=== PATIENT | male | born 1950 | race Caucasian/White ===

== ENCOUNTER 2016-12-29 14:30 | Emergency (ER) | payer MEDICARE, OTHER ==
[2016-12-29 14:42] VITALS: BP 165/81
[2016-12-29] MEDS ORDERED: Bupivacaine 0.5% 10 ML SDV INJECT ONE (15:11)
--- NOTE | 2016-12-29 15:12 | EDM.PDOC ---
ED HPI GENERAL MEDICAL PROBLEM - General Chief Complaint: Laceration Stated Complaint: Left finger injury Time Seen by Provider: 12/29/16 15:05 Source of Information: Reports: Patient, RN Notes Reviewed History Limitations: Reports: No Limitations - History of Present Illness INITIAL COMMENTS - FREE TEXT/NARRATIVE: 66 year old male presents to the ED with laceration and crush type injury to his left ring finger. He was moving a large rock and caught his finger between concrete and the large rock. He has pain to the tip of his finger. His finger nail is intact. Last tetanus was in 2016. Left 4-Ring finger Pain Score (Numeric/FACES): 7 - Related Data Allergies Allergy/AdvReac Type Severity Reaction Status Date / Time No Known Allergies Allergy Verified 12/29/16 14:42 Home Meds: Home Meds Aspirin [Halfprin] 81 mg PO DAILY 09/30/15 [History] Gemfibrozil [Gemfibrozil] 600 mg PO BID 09/30/15 [History] amLODIPine Besylate [Amlodipine Besylate] 10 mg PO DAILY 09/30/15 [History] metFORMIN [Glucophage XR] 500 mg PO DAILY 09/30/15 [History] Cephalexin [Keflex] 500 mg PO Q6HR #28 cap 12/29/16 [Rx] Gabapentin [Neurontin] 200 mg PO BEDTIME 12/29/16 [History] Ibuprofen 800 mg PO TID PRN #30 tablet 12/29/16 [Rx] Lutein/Minerals/Vit A,C & E [Ocuvite] 1 tab PO DAILY 12/29/16 [History] Multivitamin [Multivitamins] 1 each PO DAILY 12/29/16 [History] Ranitidine [Zantac] 150 mg PO BID 12/29/16 [History] Past Medical History Cardiovascular History: Reports: High Cholesterol, Hypertension Neurological History: Reports: Neuropathy, Diabetic Endocrine/Metabolic History: Reports: Diabetes, Type II Social & Family History - Tobacco Use Smoking Status *Q: Former Smoker Used Tobacco, but Quit: Yes Month Tobacco Last Used: 1984 - Caffeine Use Caffeine Use: Reports: None - Recreational Drug Use Recreational Drug Use: No ED ROS GENERAL - Review of Systems Review Of Systems: See Below Musculoskeletal: Reports: Other (finger pain) Skin: Reports: Wound Neurological: Denies: Numbness, Tingling ED EXAM, SKIN/RASH Exam: See Below Exam Limited By: No Limitations General Appearance: Alert, WD/WN, No Apparent Distress Respiratory/Chest: No Respiratory Distress Cardiovascular: Regular Rate, Rhythm Extremities: Other (wound to tip of left ring finger. He has full ROM of the DIP joint. ) Neurological: Alert, Oriented, No Motor/Sensory Deficits Skin: Warm, Dry, Normal Color, Other (deep, gaping, laceration to tip of left ring finger. There is a small 0.5cm laceration as well to the tip of the finger. ) ED SKIN PROCEDURES - Laceration/Wound Repair Left Finger Lac/Wound length In cm: 3 Appearance: Subcutaneous, Irregular, Mildly Contaminated Distal NVT: Neuro & Vascular Intact, No Tendon Injury Anesthetic Type: Digital Local Anesthesia - Bupivicaine (Marcaine): 0.5% Plain Local Anesthetic Volume: Other (8) Exploration/Debridement/Repair: Wound Explored, in a Bloodless Field, Explored to Base, Minimal Debridement, No Foreign Material Found, Wound Margins Revised Closed with: Sutures Suture Size: 4-0 # of Sutures: 6 Suture Type: Nylon, Interrupted, Simple Sterile Dressing Applied: Nurse Tetanus Status Addressed: Yes Complications: No Complication Description: Small 0.5cm laceration was also repaired with 1 4-0 suture. Course - Vital Signs Last Recorded V/S: Last Vital Signs Temp 97.6 F 12/29/16 14:37 Pulse 70 12/29/16 14:37 Resp 16 12/29/16 14:37 BP 165/81 H 12/29/16 14:37 Pulse Ox 97 12/29/16 14:37 - Orders/Labs/Meds Orders: Active Orders 24 hr Category Date Time Status Fingers Fourth Digit Lt F3 [CR] Stat Exams 12/29/16 15:11 Taken Meds: Medications Discontinued Medications Generic Name Dose Route Start Last Admin Trade Name Freq PRN Reason Stop Dose Admin Bupivacaine HCl 10 ml 12/29/16 15:11 12/29/16 15:31 Sensorcaine-Mpf 0.5% INJECT 12/29/16 15:12 10 ml ONETIME ONE Administration - Re-Assessments/Exams Free Text/Narrative Re-Assessment/Exam: X-rays of the left ring finger reveal a tuft fracture. Wound was thoroughly cleansed. Patient will be placed on Keflex with instructions to f/u with ortho in 7-10 days. Educated on wound care. Placed in aluminum splint. Departure - Departure Time of Disposition: 15:59 Disposition: Home, Self-Care 01 Condition: Good Clinical Impression: Finger laceration Qualifiers: Encounter type: initial encounter Finger: ring finger Damage to nail status: without damage Foreign body presence: without foreign body Laterality: left Qualified Code(s): S61.215A - Laceration without foreign body of left ring finger without damage to nail, initial encounter Open fracture of tuft of distal phalanx of finger Qualifiers: Encounter type: initial encounter Qualified Code(s): S62.639B - Displaced fracture of distal phalanx of unspecified finger, initial encounter for open fracture - Discharge Information Prescriptions: Cephalexin [Keflex] 500 mg PO Q6HR #28 cap Ibuprofen 800 mg PO TID PRN #30 tablet PRN Reason: Pain Instructions: Laceration Care, Adult Referrals: Derrick Upton MD [Primary Care Provider] - Forms: ED Department Discharge Additional Instructions: Rest, ice and elevate Wear finger splint until evaluated by Dr. Coley See Dr. Coley in 7-10 days for recheck. Call [phone] to schedule Ibuprofen 800mg every 8 hours as needed for pain Tylenol 1000mg every 8 hours as needed for pain Keflex 500mg every 6 hours for a total of 7 days Laceration with suture repair Try to keep initial dressing in place for 24 hours After 24 hours, you can gently wash the wound with gentle soap and water Do not submerge the area in water until the sutures are out Apply antibiotic ointment and keep the wound covered for first 2-3 days then leave open to air Keep wound covered if there is a chance it can get dirty Sutures need to be removed in 7-10 days [facility] removes sutures for free. Their hours are 8am-6pm Monday through Monday. Return to clinic if signs or symptoms of infection arise, including increased redness, swelling, drainage, or fever Tylenol or Ibuprofen as needed for pain - My Orders Last 24 Hours: My Active Orders 12/29/16 15:11 Fingers Fourth Digit Lt F3 [CR] Stat - Assessment/Plan Last 24 Hours: My Active Orders 12/29/16 15:11 Fingers Fourth Digit Lt F3 [CR] Stat
--- NOTE | 2016-12-30 07:02 | CR ---
Left fourth finger: Four views centered to the left fourth finger were obtained. Distal soft tissue injury is identified. No fracture, dislocation or other bony abnormality is seen. Impression: 1. Distal soft tissue injury. 2. No bony abnormality is identified on left fourth finger study. Diagnostic code #3
== END 2016-12-29 16:20 | disposition home or self-care (01) ==
LOC: JD.ED 14:30
DX: S62.639B Displaced fracture of distal phalanx of unspecified finger, initial encounter for open fracture (principal); I10 Essential (primary) hypertension; E11.40 Type 2 diabetes mellitus with diabetic neuropathy, unspecified; Z79.84 Long term (current) use of oral hypoglycemic drugs; E78.00 Pure hypercholesterolemia, unspecified; Z87.891 Personal history of nicotine dependence; Z79.82 Long term (current) use of aspirin; Z79.899 Other long term (current) drug therapy
CPT/HCPCS: 12002; 64450; 73140-26-F3; 73140-F3; 99283-25

== ENCOUNTER 2018-02-26 03:16 | Emergency (ER) | payer MEDICARE, OTHER ==
[2018-02-26 03:25] VITALS: BP 146/66
--- NOTE | 2018-02-26 03:39 | EDM.PDOC ---
ED HPI GENERAL MEDICAL PROBLEM - General Chief Complaint: Lower Extremity Injury/Pain Stated Complaint: LEG PAIN Time Seen by Provider: 02/26/18 03:28 Source of Information: Reports: Patient, Family, Old Records History Limitations: Reports: No Limitations - History of Present Illness INITIAL COMMENTS - FREE TEXT/NARRATIVE: Patient is with right groin pain rating down to the right inner thigh. He had heart catheter/angiogram performed on February 15, 2018. He had developed some chest pain and went to the [facility] where he had workup and evaluation that showed a positive calcium score for his heart screening chest pain and this was followed by the angiogram. His angiogram acted came back showing fairly good results. He did not require any stents. He's only been on aspirin 81 mg daily. He has described having a history of a blood clot many years ago but otherwise has not noted any chest pain shortness of breath or breathing problems. No fevers chills or sweats. He's noted the development of bruising discoloration and some mild swelling to the right thigh that started 4 days ago does not have any increasing pain with walking no claudication E Marie feels better when he walks and feels worse at rest. Note some back discomfort but no history of any back pain or sciatica. Right Groin Pain Score (Numeric/FACES): 8 - Related Data Allergies Allergy/AdvReac Type Severity Reaction Status Date / Time No Known Allergies Allergy Verified 02/26/18 03:42 MDT Home Meds: Home Meds Aspirin [Halfprin] 81 mg PO DAILY 09/30/15 [History] Gemfibrozil 600 mg PO BID 09/30/15 [History] amLODIPine Besylate [Amlodipine Besylate] 10 mg PO DAILY 09/30/15 [History] metFORMIN [Glucophage XR] 500 mg PO DAILY 09/30/15 [History] Gabapentin [Neurontin] 200 mg PO BID 12/29/16 [History] Ibuprofen 800 mg PO TID PRN #30 tablet 12/29/16 [Rx] Lutein/Minerals/Vit A,C & E [Ocuvite] 1 tab PO DAILY 12/29/16 [History] Multivitamin [Multivitamins] 1 each PO DAILY 12/29/16 [History] Ranitidine [Zantac] 150 mg PO BID 12/29/16 [History] Rosuvastatin [Crestor] 10 mg PO DAILY 02/26/18 [History] traMADol [Ultram] 50 mg PO Q4H PRN #12 tab 02/26/18 [Rx] Past Medical History Cardiovascular History: Reports: High Cholesterol, Hypertension Neurological History: Reports: Neuropathy, Diabetic Endocrine/Metabolic History: Reports: Diabetes, Type II Social & Family History - Caffeine Use Caffeine Use: Reports: None Review of Systems - Review of Systems Review Of Systems: See Below Constitutional: Denies: Chills, Fever, Weakness Respiratory: Denies: Shortness of Breath, Cough Cardiovascular: Denies: Chest Pain, Irregular Heart Rate, Lightheadedness, Syncope GI/Abdominal: Denies: Abdominal Pain, Diarrhea, Nausea, Vomiting Genitourinary: Denies: Dysuria Musculoskeletal: Reports: Leg Pain. Denies: Foot Pain Skin: Reports: Bruising. Denies: Rash Neurological: Denies: Confusion, Dizziness, Headache Psychiatric: Reports: No Symptoms ED EXAM, GENERAL - Physical Exam Exam: See Below Exam Limited By: No Limitations General Appearance: Alert, WD/WN, No Apparent Distress Head: Atraumatic Respiratory/Chest: No Respiratory Distress, Lungs Clear, Normal Breath Sounds, No Accessory Muscle Use Cardiovascular: Normal Peripheral Pulses, Regular Rate, Rhythm, No Edema, No Gallop, No Murmur Peripheral Pulses: 2+: Femoral (L), Femoral (R), Posterior Tibial (R), Dorsalis Pedis (R) GI/Abdominal: Normal Bowel Sounds, Soft, Non-Tender, No Organomegaly, No Distention (Male) Exam: No Hernia, Other (No groin adenopathy, no bruit noted to the right femoral artery. No pulsatile mass noted.) Back Exam: Normal Inspection. No: CVA Tenderness (R) Extremities: Leg Pain, Other (Bruising discoloration noted from the area of the femoral artery more distally down to the medial knee with bruising discoloration and mild swelling. No obvious induration or warmth or redness however. Pain distal dorsalis pedis and posterior tibial pulses are normal). No : Pedal Edema, Clau's Sign, Limited Range of Motion, Increased Warmth Psychiatric: Normal Affect, Normal Mood Skin Exam: Warm, Dry. No: Erythema, Lymphangitis Course - Vital Signs Text/Narrative:: Reviewed patient's records from his visit to [facility] his workup and evaluation was reviewed. It does not appear that was any complications regarding his catheter/angiogram performed by Dr. Alva. Rule out for pseudoaneurysm, DVT, only bruising, circulation deficit. His pulses otherwise or good sensations normal. We'll screen general chemistry and clotting factor, CBC to look for infection or abnormality. We'll also perform an ultrasound to rule out pseudoaneurysm and clot. Patient was given tramadol for pain at present. Last Recorded V/S: Last Vital Signs Temp 97.1 F 02/26/18 03:21 MDT Pulse 65 02/26/18 03:21 MDT Resp 12 02/26/18 03:21 MDT BP 146/66 H 02/26/18 03:21 MDT Pulse Ox 98 02/26/18 03:21 MDT - Orders/Labs/Meds Orders: Active Orders 24 hr Category Date Time Status Cardiac Monitoring [RC] . DIRECTED Care 02/26/18 03:49 Active VL Duplex Lwr Ext Veins Ltd Rt [US] Stat Exams 02/26/18 03:50 Taken Labs: Laboratory Tests 02/26/18 02/26/18 02/26/18 Range/Units 03:55 MDT 03:55 MDT 03:55 MDT WBC 6.36 (4.23-9.07) K/mm3 RBC 4.15 L (4.63-6.08) M/mm3 Hgb 13.1 L (13.7-17.5) gm/L Hct 37.5 L (40.1-51.0) % MCV 90.4 (79.0-92.2) fl MCH 31.6 (25.7-32.2) pg MCHC 34.9 (32.2-35.5) g/dl RDW Std Deviation 42.3 (35.1-43.9) fL Plt Count 305 (163-337) K/mm3 MPV 10.5 (9.4-12.3) fl Neut % (Auto) 59.9 (34.0-67.9) % Lymph % (Auto) 27.8 (21.8-53.1) % [place] % (Auto) 8.3 (5.3-12.2) % Eos % (Auto) 3.5 (0.8-7.0) Baso % (Auto) 0.3 (0.1-1.2) % Neut # (Auto) 3.81 (1.78-5.38) K/mm3 Lymph # (Auto) 1.77 (1.32-3.57) K/mm3 [place] # (Auto) 0.53 (0.30-0.82) K/mm3 Eos # (Auto) 0.22 (0.04-0.54) K/mm3 Baso # (Auto) 0.02 (0.01-0.08) K/mm3 Sodium 139 (136-145) mEq/L Potassium 4.4 (3.5-5.1) mEq/L Chloride 104 (98-107) mEq/L Carbon Dioxide 26 (21-32) mEq/L Anion Gap 13.4 (5-15) BUN 24 H (7-18) mg/dL Creatinine 1.3 (0.7-1.3) mg/dL Est Cr Clr Drug Dosing 56.93 mL/min Estimated GFR (MDRD) 55 (>60) mL/min BUN/Creatinine Ratio 18.5 H (14-18) Glucose 153 H (80-115) mg/dL Calcium 9.0 (8.5-10.1) mg/dL Total Bilirubin 0.6 (0.2-1.0) mg/dL AST 21 (15-37) U/L ALT 33 (16-63) U/L Alkaline Phosphatase 73 (46-116) U/L NT-Pro-B Natriuret Pep 18 (0-125) pg/mL Total Protein 7.3 (6.4-8.2) g/dl Albumin 3.8 (3.4-5.0) g/dl Globulin 3.5 gm/dL Albumin/Globulin Ratio 1.1 (1-2) Meds: Medications Discontinued Medications Generic Name Dose Route Start Last Admin Trade Name Freq PRN Reason Stop Dose Admin Tramadol HCl 50 mg 02/26/18 03:49 MDT 02/26/18 03:56 MDT Ultram PO 02/26/18 03:50 MDT 50 mg ONETIME ONE Administration - Radiology Interpretation Free Text/Narrative:: Ultrasound report is back with no signs of any deep vein thrombosis however there is a 2.6 x 2 cm pseudoaneurysm with mixed flow noted on the ultrasound test. - Re-Assessments/Exams Free Text/Narrative Re-Assessment/Exam: 02/26/18 05:[address] Kovasc the hardness inspector brickmason at [facility] and he was recommending patient to follow-up with Dr. Alva in the office tomorrow. Family however had appointments arranged already in [place] and was considering whether they might be able to get help at [facility]. I discussed case with Dr. Holley at [place] and he was concerned that the patient may benefit from evaluation sooner. I then discussed case with Dr. Covarrubias the emergency department physician brickmason at [facility] and agrees to accept the patient in transfer. We'll send appropriate labs and imaging. Departure - Departure Time of Disposition: 06:00 Disposition: DC/Tfer to Other 70 Clinical Impression: Hematoma, Pseudoaneurysm following procedure - Discharge Information Prescriptions: traMADol [Ultram] 50 mg PO Q4H PRN #12 tab PRN Reason: Pain (Severe 7-10) Referrals: Derrick Upton MD [Primary Care Provider] - Forms: ED Department Discharge Additional Instructions: Rest, do not drive today. Go to the emergency department at [facility]. - My Orders Last 24 Hours: My Active Orders 02/26/18 03:49 Cardiac Monitoring [RC] . DIRECTED 02/26/18 03:50 VL Duplex Lwr Ext Veins Ltd Rt [US] Stat - Assessment/Plan Last 24 Hours: My Active Orders 02/26/18 03:49 Cardiac Monitoring [RC] . DIRECTED 02/26/18 03:50 VL Duplex Lwr Ext Veins Ltd Rt [US] Stat
[2018-02-26] MEDS ORDERED: traMADol 50 MG Tab PO ONE (03:49)
--- NOTE | 2018-02-27 10:10 | US ---
Right lower extremity deep venous ultrasound: Duplex and color flow imaging was obtained of the right common femoral, proximal greater saphenous, superficial femoral, popliteal, posterior tibial and peroneal veins. Findings: Findings compatible with pseudoaneurysm noted within the right groin. This measures about 2.6 cm in greatest size. Deep veins show normal phasic flow, augmentation and compression. Impression: 1. 2.6 cm pseudoaneurysm within the right groin. 2. No evidence of venous thrombosis is seen within the right lower extremity or within the left common femoral vein. Diagnostic code #3 I agree with preliminary report from [facility], finalized at 02/26/18, 6:16 AM Central Time
== END 2018-02-26 06:24 | disposition other institution (70) ==
LOC: JD.ED 03:16
DX: I97.638 Postprocedural hematoma of a circulatory system organ or structure following other circulatory system procedure (principal); I72.9 Aneurysm of unspecified site; I10 Essential (primary) hypertension; E78.00 Pure hypercholesterolemia, unspecified; E11.40 Type 2 diabetes mellitus with diabetic neuropathy, unspecified; Z79.84 Long term (current) use of oral hypoglycemic drugs; Z79.899 Other long term (current) drug therapy; Z79.82 Long term (current) use of aspirin
CPT/HCPCS: 36415; 80053; 83880; 85025; 93971; 99284; A9270

== ENCOUNTER 2019-03-21 07:37 | Day surgery (SDC) | payer OTHER ==
[~2019-03-21 07:37] MED LIST: Lactated Ringers 1,000 ML IV SCH; Lidocaine 1% 4 ML ONE; Lidocaine 1%/Sod Bicarbonate in NS 8.4% 1 ML Syringe IDERM PRN; Midazolam 1 MG/ML 2 ML SDV ONE; Ondansetron 4 MG/2 ML SDV ONE; Propofol 200 MG/20 ML SDV ONE; Sodium Chloride 0.9% 10 ML Syringe FLUSH PRN; ceFAZolin 1 GM Vial ONE; fentaNYL 100 MCG/2 ML SDV ONE
--- NOTE | 2019-03-21 07:56 | PCM.PREANE ---
Preanesthetic Assessment - Anesthesia/Transfusion/Family Hx Anesthesia History: Prior Anesthesia Without Reaction Family History of Anesthesia Reaction: No Transfusion History: No Prior Transfusion(s) Intubation History: Unknown - Review of Systems General: No Symptoms Pulmonary: No Symptoms Cardiovascular: No Symptoms Gastrointestinal: No Symptoms Neurological: No Symptoms Other: Reports: None - Physical Assessment NPO Status Date: 03/21/19 NPO Status Time: 18:00 ASA Class: 2 Mental Status: Alert & Oriented x3 Airway Class: Mallampati = 2 Dentition: Reports: Normal Dentition Thyro-Mental Finger Breadths: 3 Mouth Opening Finger Breadths: 3 ROM/Head Extension: Full Lungs: Clear to Auscultation, Normal Respiratory Effort Cardiovascular: Regular Rate, Regular Rhythm - Lab Values: Laboratory Last Values MRSA (PCR) Negative 03/13/19 14:35 - Allergies Allergies/Adverse Reactions: Allergies Allergy/AdvReac Type Severity Reaction Status Date / Time No Known Allergies Allergy Verified 03/20/19 10:38 - Acknowledgements Anesthesia Type Planned: MAC Pt an Appropriate Candidate for the Planned Anesthesia: Yes Alternatives and Risks of Anesthesia Discussed w Pt/Guardian: Yes Pt/Guardian Understands and Agrees with Anesthesia Plan: Yes PreAnesthesia Questionnaire HEENT History: Reports: Impaired Vision, Other (See Below) Other HEENT History: Tinnitus, sensorneural hearing loss Cardiovascular History: Reports: CAD, High Cholesterol, Hypertension (EKG SB 59), Other (See Below) Other Cardiovascular History: LAD Stenosis, History or thromboembolism, femoral aneurysm repair, swelling of extremities Respiratory History: Reports: Sleep Apnea, Other (See Below) Other Respiratory History: Uses CPAP Gastrointestinal History: Reports: GERD, Other (See Below) Other Gastrointestinal History: Diverticulitis Genitourinary History: Reports: Other (See Below) Other Genitourinary History: Erectile dysfunction, hypogonadism Musculoskeletal History: Reports: Other (See Below) Other Musculoskeletal History: Joint pain Neurological History: Reports: Headaches, Chronic, Neuropathy, Diabetic Psychiatric History: Reports: None Endocrine/Metabolic History: Reports: Diabetes, Type II (BS 111 @ 0752) Hematologic History: Reports: None Immunologic History: Reports: None Oncologic (Cancer) History: Reports: Basal Cell Carcinoma - Past Surgical History Head Surgeries/Procedures: Reports: None HEENT Surgical History: Reports: None Cardiovascular Surgical History: Reports: Other (See Below) Other Cardiovascular Surgeries/Procedures: Angiogram Respiratory Surgical History: Reports: None GI Surgical History: Reports: Other (See Below) Other GI Surgeries/Procedures: Umbilical hernia repair Male Surgical History: Reports: None Endocrine Surgical History: Reports: None Neurological Surgical History: Reports: None Musculoskeletal Surgical History: Reports: Other (See Below) Other Musculoskeletal Surgeries/Procedures:: Right bunionectomy, left hand surgery Oncologic Surgical History: Reports: None - SUBSTANCE USE Smoking Status *Q: Former Smoker Second Hand Smoke Exposure: No Recreational Drug Use History: No - HOME MEDS Home Medications: Home Meds Aspirin [Halfprin] 81 mg PO DAILY 09/30/15 [History] Gemfibrozil 600 mg PO BID 09/30/15 [History] amLODIPine Besylate [Amlodipine Besylate] 10 mg PO DAILY 09/30/15 [History] metFORMIN [Glucophage XR] 500 mg PO DAILY 09/30/15 [History] Gabapentin [Neurontin] 200 mg PO BEDTIME 12/29/16 [History] Lutein/Minerals/Vit A,C & E [Ocuvite] 1 tab PO DAILY 12/29/16 [History] Multivitamin [Multivitamins] 1 tab PO DAILY 12/29/16 [History] Ranitidine [Zantac] 150 mg PO BID 12/29/16 [History] Rosuvastatin [Crestor] 10 mg PO BEDTIME 02/26/18 [History] Calcium Polycarbophil [Fiber Tabs] 1 tab PO DAILY 03/20/19 [History] Cholecalciferol (Vitamin D3) [Vitamin D3] 2,000 unit PO BID 03/20/19 [History] Gabapentin [Neurontin] 100 mg PO 1200 03/20/19 [History] Lisinopril/Hydrochlorothiazide [Lisinopril-Hctz 20-12.5 mg Tab] 1 tab PO DAILY 03/20/19 [History] traMADol [Ultram] 50 - 100 mg PO Q6H PRN #15 tab 03/21/19 [Rx] - CURRENT (IN HOUSE) MEDS Current Meds: Current Medications Lactated Ringer's (Ringers, Lactated) 1,000 mls @ 125 mls/hr IV ASDIRECTED ELIGIO Stop: 03/21/19 23:00 Lidocaine/Sodium Bicarbonate (Buffered Lidocaine 1% In Ns 8.4%) 0.25 ml IDERM ONETIME PRN PRN Reason: Prior to IV Start Stop: 03/21/19 18:00 Sodium Chloride (Saline Flush) 10 ml FLUSH ASDIRECTED PRN PRN Reason: Keep Vein Open Stop: 03/21/19 18:00 Discontinued Medications Cefazolin Sodium (Ancef) Confirm Administered Dose 2 gm .ROUTE .STK-MED ONE Stop: 03/21/19 07:10 Fentanyl (Sublimaze) Confirm Administered Dose 100 mcg .ROUTE .STK-MED ONE Stop: 03/21/19 07:11 Lidocaine HCl (Xylocaine-Mpf 1%) Confirm Administered Dose 4 mls @ as directed .ROUTE .STK-MED ONE Stop: 03/21/19 07:10 Midazolam HCl (Versed 1 Mg/Ml) Confirm Administered Dose 2 mg .ROUTE .STK-MED ONE Stop: 03/21/19 07:11 Ondansetron HCl (Zofran) Confirm Administered Dose 4 mg .ROUTE .STK-MED ONE Stop: 03/21/19 07:16 Propofol (Diprivan 20 Ml) Confirm Administered Dose 200 mg .ROUTE .STK-MED ONE Stop: 03/21/19 07:10
[2019-03-21] MEDS ORDERED: Ketorolac 30 MG/ML SDV ONE (08:41)
[2019-03-21] MEDS: Bupivacaine 0.25% 10 ML SDV ONE ×2 (09:04→09:13)
[2019-03-21] MEDS: Lidocaine 1% 30 ML SDV ONE ×2 (09:04→09:13)
--- NOTE | 2019-03-21 09:39 | PCM48HPAN ---
Post Anesthesia Note - EVALUATION WITHIN 48HRS OF ANESTHETIC Vital Signs in Normal Range: Yes Patient Participated in Evaluation: Yes Respiratory Function Stable: Yes Airway Patent: Yes Cardiovascular Function Stable: Yes Hydration Status Stable: Yes Pain Control Satisfactory: Yes Nausea and Vomiting Control Satisfactory: Yes Mental Status Recovered: Yes Vital Signs: Last Vital Signs Temp 36.3 C 03/21/19 07:40 Pulse 58 L 03/21/19 07:40 Resp 16 03/21/19 07:40 BP 121/52 L 03/21/19 07:40 Pulse Ox 98 03/21/19 07:40
[2019-03-21 09:41] VITALS: BP 110/57; PULSE 61
--- NOTE | 2019-03-25 13:04 | PCM.OPNOTE ---
- General Post-Op/Procedure Note Date of Surgery/Procedure: 03/21/19 Operative Procedure(s): left index, middle and ring finger trigger finger release Pre Op Diagnosis: left index, middle and ring finger stenosing tenosynovitis Post-Op Diagnosis: Same Anesthesia Technique: Local, MAC Primary Surgeon: Bryn Coley Anesthesia Provider: Marce Degroot Property Clerk: Carline Garcia EBL in mLs: 5 Complications: None Condition: Good
--- NOTE | 2019-03-25 14:06 | OR ---
DATE OF OPERATION: 03/21/2019 SURGEON: Bryn Coley MD OPERATION PERFORMED: Left index middle and ring finger trigger finger release. PREOPERATIVE DIAGNOSIS: Left index middle and ring finger stenosing tenosynovitis. POSTOPERATIVE DIAGNOSIS: Left index middle and ring finger stenosing tenosynovitis. ANESTHESIA: Local MAC. ANESTHESIOLOGIST: Marce Degroot CRNA PHYSICIAN/OPHTHALMOLOGIST: Carline Garcia PA-C ESTIMATED BLOOD LOSS: Less than 5 mL. COMPLICATIONS: None. CONDITION: Stable. DESCRIPTION OF PROCEDURE: The patient was identified in the preop holding area. Proper site was marked and identified by the surgeon. The patient was taken back to the operating theater after adequate anesthesia, the patient's left upper extremity was sterilely prepped and draped in the usual sterile fashion. OR time-out was performed. The patient received proper antibiotics. At this time, left upper extremity was exsanguinated and Esmarch was used as a tourniquet on the forearm. 1% lidocaine without epinephrine and 0.25% Marcaine without epinephrine were used to anesthetize the incisional sites over the A1 pulleys of the index, middle, and ring fingers. Starting with the index finger, transverse incision was made. Retractors were used to protect the neurovascular bundles. The A1 cony was identified. Resection of the A1 cony was done under direct visualization both proximally and distally. It was found to be adequately released. There were no tendinous adhesions. The patient was noted to have significant amount of scar tissue noted in the subcutaneous fat region. A transverse incision again was made over the middle finger in similar fashion, taken down. The A1 cony was released in similar fashion. Again, the patient was noted to have scar tissue, probably from his old Dupuytren's contracture releases. A transverse incision was again made over the ring finger. This one even showed more scar tissue, but I was able to identify the A1 cony. With direct visualization, a [place] blade was used to resect the A1 cony both proximally and distally and it was found to have adequate resection. The tendon showed no tendinous adhesions. Adequate saline was irrigated through the wound. 4-0 nylon suture was used for closure of the skin. The patient was placed in a sterile soft dressing and sent to PACU in stable condition. MMODAL /[id number]
== END 2019-03-21 10:02 | disposition home or self-care (01) ==
LOC: JD.SDS 07:37
PROVIDERS: ATTEND Orthopaedic Surgery
DX: M65.322 Trigger finger, left index finger (principal); M65.332 Trigger finger, left middle finger; M65.342 Trigger finger, left ring finger; I25.10 Atherosclerotic heart disease of native coronary artery without angina pectoris; I10 Essential (primary) hypertension; E11.42 Type 2 diabetes mellitus with diabetic polyneuropathy; E78.2 Mixed hyperlipidemia; K21.9 Gastro-esophageal reflux disease without esophagitis; G47.33 Obstructive sleep apnea (adult) (pediatric); Z87.891 Personal history of nicotine dependence; Z79.84 Long term (current) use of oral hypoglycemic drugs; Z79.899 Other long term (current) drug therapy
CPT/HCPCS: 26055; 82962; 87641; J0690; J1885; J2001; J2250; J2405; J2704; J3010; J3490; J7120; 01810

== ENCOUNTER 2023-06-12 08:56 | Emergency (ER) | payer OTHER ==
[2023-06-12] MEDS ORDERED: Aspirin 81 MG Tab.Chew PO ONE (09:16)
[2023-06-12] MEDS ORDERED: Sodium Chloride 0.9% 10 ML Syringe FLUSH PRN (09:16)
[2023-06-12 09:25] LABS: BASOPHILS PERCENT AUTO 0.5 % (0.0-1.0); EOSINOPHILS ABSOLUTE AUTO 0.1 K/mm3 (0.0-0.4); EOSINOPHILS PERCENT AUTO 1.4 % (0.0-6.0); HEMATOCRIT 38.7 % (42.0-52.0); HEMOGLOBIN 13.4 gm/dl (14.0-18.0); IMMATURE GRAN ABSOLUTE AUTO 0.05 K/mm3 (0.00-0.05); IMMATURE GRAN PERCENT AUTO 0.9 % (0.0-0.4); LYMPHOCYTES ABSOLUTE AUTO 1.7 K/mm3 (1.0-4.8); LYMPHOCYTES PERCENT AUTO 29.3 % (24.0-44.0); MEAN CORPUSCULAR HEMOGLOBIN 31.7 pg (28.0-32.0); MEAN CORPUSCULAR HGB CONC 34.6 g/dl (32.0-36.0); MEAN CORPUSCULAR VOLUME 91.5 fl (83.0-99.0); MEAN PLATELET VOLUME 9.8 fl (9.4-12.4); MONOCYTES ABSOLUTE AUTO 0.4 K/mm3 (0.0-0.8); MONOCYTES PERCENT AUTO 7.2 % (0.0-8.0); NEUTROPHILS ABSOLUTE AUTO 3.6 K/mm3 (1.8-7.7); NEUTROPHILS PERCENT AUTO 60.7 % (41.0-71.0); PLATELET COUNT,PLT 182 K/mm3 (150-400); RED BLOOD CELL COUNT 4.23 M/mm3 (4.52-5.90); WHITE BLOOD CELL COUNT,WBC 5.87 K/mm3 (3.9-11.3)
[2023-06-12 09:56] LABS: A/G RATIO 1.1 (1-2); ALANINE AMINOTRANSFERASE,ALT 28 U/L (16-63); ALBUMIN 3.7 g/dl (3.4-5.0); ALKALINE PHOSPHATASE 45 U/L (46-116); ANION GAP 14.2 (5-15); ASPARTATE AMNIOTRANSFERASE,AST 16 U/L (15-37); BILIRUBIN TOTAL 0.6 mg/dL (0.2-1.0); BLOOD UREA NITROGEN,BUN 16 mg/dL (7-18); BUN/CREATININE RATIO 12.3 (14-18); CALCIUM 8.7 mg/dL (8.5-10.1); CARBON DIOXIDE,CO2 26 mEq/L (21-32); CHLORIDE,CL 102 mEq/L (98-107); CREATININE 1.3 mg/dL (0.7-1.3); ESTIMATED GFR 58 mL/min (>60); GLUCOSE RANDOM 177 mg/dL (70-99); POTASSIUM,K 4.2 mEq/L (3.5-5.1); PROTEIN TOTAL,TP 7.1 g/dl (6.4-8.2); SODIUM,NA 138 mEq/L (136-145); TROPONIN I HIGH SENSITIVITY 5 pg/mL (<=76)
[2023-06-12 11:57] VITALS: BP 128/47; PULSE 60
== END 2023-06-12 12:01 | disposition home or self-care (01) ==
LOC: JD.ED 08:56
DX: R07.89 Other chest pain (principal); R51.9 Headache, unspecified; I10 Essential (primary) hypertension; E78.00 Pure hypercholesterolemia, unspecified; I25.10 Atherosclerotic heart disease of native coronary artery without angina pectoris; K21.9 Gastro-esophageal reflux disease without esophagitis; E11.9 Type 2 diabetes mellitus without complications; Z79.84 Long term (current) use of oral hypoglycemic drugs; Z79.899 Other long term (current) drug therapy; Z79.82 Long term (current) use of aspirin
CPT/HCPCS: 36415; 70450; 71045; 80053; 84484; 85025; 85379; 93005; 99285; A9270; 93010; 99283